=== PATIENT | male | born 1960 | race Caucasian/White ===

== ENCOUNTER → 2017-07-22 | Outpatient (CLI) | payer OTHER | END | disposition home or self-care (01) | LOC: PMGWOUND 08:32 | DX: L98.493 Non-pressure chronic ulcer of skin of other sites with necrosis of muscle (principal); J44.9 Chronic obstructive pulmonary disease, unspecified; F20.9 Schizophrenia, unspecified; F17.210 Nicotine dependence, cigarettes, uncomplicated; Z85.828 Personal history of other malignant neoplasm of skin | CPT/HCPCS: 97597; 97598 ==

== ENCOUNTER → 2017-07-29 | Outpatient (CLI) | payer OTHER | END | disposition home or self-care (01) | LOC: PMGWOUND 08:12 | DX: L98.494 Non-pressure chronic ulcer of skin of other sites with necrosis of bone (principal); J44.9 Chronic obstructive pulmonary disease, unspecified; F20.9 Schizophrenia, unspecified; F17.210 Nicotine dependence, cigarettes, uncomplicated; Z85.828 Personal history of other malignant neoplasm of skin | CPT/HCPCS: 97597 ==

== ENCOUNTER → 2017-08-05 | Outpatient (CLI) | payer OTHER | END | disposition home or self-care (01) | LOC: PMGWOUND 07:45 | DX: L98.493 Non-pressure chronic ulcer of skin of other sites with necrosis of muscle (principal); J44.9 Chronic obstructive pulmonary disease, unspecified; F17.210 Nicotine dependence, cigarettes, uncomplicated; Z85.828 Personal history of other malignant neoplasm of skin | CPT/HCPCS: 97597 ==

== ENCOUNTER → 2017-08-12 | Outpatient (CLI) | payer OTHER | END | disposition home or self-care (01) | LOC: PMGWOUND 08:39 | DX: L98.493 Non-pressure chronic ulcer of skin of other sites with necrosis of muscle (principal); J44.9 Chronic obstructive pulmonary disease, unspecified; F17.210 Nicotine dependence, cigarettes, uncomplicated; F20.9 Schizophrenia, unspecified; Z85.828 Personal history of other malignant neoplasm of skin | CPT/HCPCS: 97597 ==

== ENCOUNTER → 2017-08-19 | Outpatient (CLI) | payer OTHER | END | disposition home or self-care (01) | LOC: PMGWOUND 07:43 | DX: L98.494 Non-pressure chronic ulcer of skin of other sites with necrosis of bone (principal); J44.9 Chronic obstructive pulmonary disease, unspecified; F17.210 Nicotine dependence, cigarettes, uncomplicated; F20.9 Schizophrenia, unspecified; Z85.828 Personal history of other malignant neoplasm of skin | CPT/HCPCS: 97597; 97598 ==

== ENCOUNTER → 2017-08-26 | Outpatient (CLI) | payer OTHER | END | disposition home or self-care (01) | LOC: PMGWOUND 07:50 | DX: L98.494 Non-pressure chronic ulcer of skin of other sites with necrosis of bone (principal); J44.9 Chronic obstructive pulmonary disease, unspecified; F17.210 Nicotine dependence, cigarettes, uncomplicated; F20.9 Schizophrenia, unspecified; Z85.828 Personal history of other malignant neoplasm of skin | CPT/HCPCS: 97597; 97598 ==

== ENCOUNTER → 2017-09-02 | Outpatient (CLI) | payer OTHER | END | disposition home or self-care (01) | LOC: PMGWOUND 07:41 | DX: L98.494 Non-pressure chronic ulcer of skin of other sites with necrosis of bone (principal); J44.9 Chronic obstructive pulmonary disease, unspecified; F17.210 Nicotine dependence, cigarettes, uncomplicated; F20.9 Schizophrenia, unspecified; Z85.828 Personal history of other malignant neoplasm of skin | CPT/HCPCS: 97597 ==

== ENCOUNTER → 2017-09-09 | Outpatient (CLI) | payer OTHER | END | disposition home or self-care (01) | LOC: PMGWOUND 07:49 | DX: L98.493 Non-pressure chronic ulcer of skin of other sites with necrosis of muscle (principal); J44.9 Chronic obstructive pulmonary disease, unspecified; F17.210 Nicotine dependence, cigarettes, uncomplicated; F20.9 Schizophrenia, unspecified; Z85.828 Personal history of other malignant neoplasm of skin | CPT/HCPCS: 97597 ==

== ENCOUNTER → 2017-09-16 | Outpatient (CLI) | payer OTHER | END | disposition home or self-care (01) | LOC: PMGWOUND 07:41 | DX: L98.493 Non-pressure chronic ulcer of skin of other sites with necrosis of muscle (principal); J44.9 Chronic obstructive pulmonary disease, unspecified; F20.9 Schizophrenia, unspecified; F17.210 Nicotine dependence, cigarettes, uncomplicated; Z85.828 Personal history of other malignant neoplasm of skin | CPT/HCPCS: 99214 ==

== ENCOUNTER → 2017-09-30 | Outpatient (CLI) | payer OTHER | END | disposition home or self-care (01) | LOC: PMGWOUND 07:41 | DX: L98.493 Non-pressure chronic ulcer of skin of other sites with necrosis of muscle (principal); J44.9 Chronic obstructive pulmonary disease, unspecified; F20.9 Schizophrenia, unspecified; F17.210 Nicotine dependence, cigarettes, uncomplicated; Z85.828 Personal history of other malignant neoplasm of skin | CPT/HCPCS: 99213 ==

== ENCOUNTER → 2019-01-26 | Outpatient (CLI) | payer OTHER ==
[~2019-01-26] MED LIST: ASPI-612 PO; ATEN50TA PO; BREX2TAB PO; CHOL10003 PO; CLONAZEPAM1 MG PO; DIVA500T2 PO; DOCU-109 PO; HYDR-3164 PO; OMEG1CAP38 PO; TAMS0.4C97 PO; ZIPR60CA2 PO
[2019-01-26 12:44] LABS: BASO # 0.1 x10^3/uL (0.0-0.2); BASO % 1 % (0-3); EOS # 0.2 x10^3/uL (0.0-0.7); EOS % 3 % (0-3); HEMATOCRIT 44.3 % (39.0-53.0); HEMOGLOBIN 15.3 g/dL (13.0-17.5); LYMPH # 1.4 x10^3/uL (1.0-4.8); LYMPH % 18 % (24-48); MEAN CORPUSCULAR HEMOGLOBIN 30 pg (25-35); MEAN CORPUSCULAR HGB CONC 35 g/dL (31-37); MEAN CORPUSCULAR VOLUME 86 fL (79-100); MONO # 0.6 x10^3/uL (0.0-1.1); MONO % 8 % (0-9); NEUT # 5.3 x10^3/uL (1.8-7.7); NEUT % 69 % (31-73); PLATELET COUNT 614 x10^3/uL (140-400); RED BLOOD COUNT 5.13 x10^6/uL (4.30-5.70); RED CELL DISTRIBUTION WIDTH 14.6 % (11.5-14.5); WHITE BLOOD COUNT 7.6 x10^3/uL (4.0-11.0)
[2019-01-26 12:55] LABS: ALBUMIN 3.8 g/dL (3.4-5.0); CALCIUM 8.9 mg/dL (8.5-10.1); GFR 76.2; POTASSIUM 4.7 mmol/L (3.5-5.1)
--- NOTE | 2019-01-27 09:26 | NUR ---
Lab results faxed to Dr. Clemens's office
== END | disposition home or self-care (01) ==
LOC: SURGPAT 12:07
PROVIDERS: ATTEND Surgery
DX: Z01.818 Encounter for other preprocedural examination (principal); K40.90 Unilateral inguinal hernia, without obstruction or gangrene, not specified as recurrent; Z88.8 Allergy status to other drugs, medicaments and biological substances
CPT/HCPCS: 36415; 80048; 82040; 85025

== ENCOUNTER 2019-01-31 08:51 | Day surgery (SDC) | payer OTHER ==
[~2019-01-31] VITALS: Ht 172.7 cm; Wt 61.5 kg
[~2019-01-31 08:51] MED LIST changes: +BUPIVACAINE-EPI 0.5%-1:200000 MPF 30 ML VIAL. INJ ONE; +DEXAMETHASONE SOD PHOS 4 MG/ML VIAL ONE; -DOCU-109 PO; -HYDR-3164 PO; +HYDROmorphone 2 MG/ML VIAL IV PRN; +IV RINGERS,LACTATED 1000ML 1,000 ML IV SCH; +LIDOCAINE 2% PF 5 ML VIAL. ONE; +MORPHINE SULFATE 2 MG/ML VIAL. IV PRN; +ONDANSETRON PF 4 MG/2 ML VIAL. ONE; +PROCHLORPERAZINE 10 MG/2 ML VIAL. IV PRN; +PROPOFOL 20 ML IV ONE; +fentaNYL PF VIAL 100 MCG/2 ML VIAL IV PRN; +fentaNYL PF VIAL 100 MCG/2 ML VIAL ONE
[2019-01-31] MEDS ORDERED: SEVOFLURANE 61 TO 120 MINUTES. IH ONE (10:30)
[2019-01-31] MEDS ORDERED: GLYCOPYRROLATE 1 MG/5 ML VIAL. ONE (10:33)
[2019-01-31] MEDS ORDERED: PHENYLEPHRINE in 0.9% NACL PF 1 MG/10 ML SYRINGE. IV ONE (10:41)
--- NOTE | 2019-01-31 11:12 | DISCH ---
DISCHARGE INSTRUCTIONS Condition on Discharge Condition on Discharge: Stable Activity After Discharge Activity Instructions for Disc: Resume previous activity, Activity as tolerated Lifting Instructions after Dis: No heavy lifting Driving Instructions after Dis: Do not drive Diet after Discharge Diet after Discharge: Regular Wound Incision Care Wound/Incision Care: Ice to area for comfort Other wound/incision instructi: september shower Thursday Follow-Up Follow up with: Sarath in [place] office 02/10 CADENCE SUÁREZ MD Jan 31, 2019 11:12
[2019-01-31] MEDS ORDERED: HYDR-3164 PO (11:20)
[2019-01-31] MEDS ORDERED: DOCU-109 PO (11:22)
--- NOTE | 2019-01-31 11:22 | PDOC ---
BRIEF OPERATIVE NOTE Date: Jan 31, 2019 Pre-Op Diagnosis right inguinal hernia Post-Op Diagnosis same, direct Procedure Performed repair with mesh Surgeon Sarath Veterinary Inspector Leatha SEXTON Anesthesia Type: General Blood Loss 10cc IV Fluid 400cc Specimens Obtained none Findings direct hernia, no indirect sack Complications none Operative Note # [id number] CADENCE SUÁREZ MD Jan 31, 2019 11:22
--- NOTE | 2019-01-31 11:35 | OP ---
DATE OF SURGERY: 01/31/2019 PREOPERATIVE DIAGNOSIS: Right inguinal hernia. POSTOPERATIVE DIAGNOSIS: Right inguinal hernia, direct. PROCEDURE: Repair with mesh. SURGEON: Cadence Suárez MD ANESTHESIA: General LMA. BLOOD LOSS: 10. INTRAVENOUS: 400. DESCRIPTION OF PROCEDURE: The patient brought to the operating suite, given a general LMA and the right groin prepped and draped in usual sterile fashion. A 0.5% Marcaine with epinephrine was used to infiltrate the skin and subcutaneous tissue along the incision line. Incision made and dissection carried down to the external oblique fascia. Bleeders were cauterized as identified. Fascia opened in the direction of its fibers, extended through the external ring. Cord swept off the pubis. [place] drain placed around it and dissection carried back to the internal ring where no evidence of an indirect hernia sac was found. A large direct hernia comprised the majority of the inguinal floor. This was mobilized circumferentially, the neck was scored with cautery and it was then reduced and held in reduction with a plug of Phasix mesh. The plug was tacked peripherally with 2-0 PDS, taking care to avoid injury to adjacent vessels. A keyhole patch was then fashioned and placed over the repair, the slit closed with a single 2-0 PDS stitch. Area checked for hemostasis and when present and a correct sponge count was obtained, the cord was returned to its normal anatomical position. External oblique fascia closed over a running fashion with 3-0 Vicryl. Subcutaneous approximated with 3-0 Vicryl, skin closed with a subcuticular 4-0 Monocryl. Steri-Strips and sterile dressing applied. The patient was awakened from his anesthetic and taken to the recovery room in satisfactory condition. CADENCE SUÁREZ MD DR: ANANT/rita JOB#: [id number] / [id number]
[2019-01-31] MEDS ORDERED: HYDROcodone/APAP 5/325MG 1 TAB TABLET PO ONE (12:15)
[2019-01-31 12:17] VITALS: BP 131/80
== END 2019-01-31 12:42 | disposition home or self-care (01) ==
LOC: SURG 08:51
PROVIDERS: ATTEND Surgery
DX: K40.90 Unilateral inguinal hernia, without obstruction or gangrene, not specified as recurrent (principal); I10 Essential (primary) hypertension; F41.9 Anxiety disorder, unspecified; F17.210 Nicotine dependence, cigarettes, uncomplicated; Z98.890 Other specified postprocedural states; Z89.429 Acquired absence of other toe(s), unspecified side; Z88.8 Allergy status to other drugs, medicaments and biological substances
CPT/HCPCS: 49505; A7015; C1781; J0690; J1100; J2001; J2370; J2405; J2704; J3010; J3490

== ENCOUNTER → 2021-08-27 | Outpatient (CLI) | payer OTHER ==
[2020-05-10 08:44] VITALS: BP 101/71
[~2021-08-27] MED LIST changes: +ALBU2.5V8 IH; -ASPI-612 PO; +ASPI-886 PO; +ASPI325T8 PO; +ATOR40TA59 PO; -BUPIVACAINE-EPI 0.5%-1:200000 MPF 30 ML VIAL. INJ ONE; +CARV6.2511 PO; +CLOP75TA PO; -DEXAMETHASONE SOD PHOS 4 MG/ML VIAL ONE; +DOCU-109 PO; +FURO40TA4 PO; +HYDR-3164 PO; -HYDROmorphone 2 MG/ML VIAL IV PRN; -IV RINGERS,LACTATED 1000ML 1,000 ML IV SCH; -LIDOCAINE 2% PF 5 ML VIAL. ONE; +LISI5TAB15 PO; -MORPHINE SULFATE 2 MG/ML VIAL. IV PRN; -ONDANSETRON PF 4 MG/2 ML VIAL. ONE; -PROCHLORPERAZINE 10 MG/2 ML VIAL. IV PRN; -PROPOFOL 20 ML IV ONE; -fentaNYL PF VIAL 100 MCG/2 ML VIAL IV PRN; -fentaNYL PF VIAL 100 MCG/2 ML VIAL ONE
[2021-08-27 11:00] LABS: BASO # 0.1 x10^3/uL (0.0-0.2); BASO % 1 % (0-3); EOS # 0.2 x10^3/uL (0.0-0.7); EOS % 2 % (0-3); HEMATOCRIT 44.4 % (39.0-53.0); HEMOGLOBIN 14.7 g/dL (13.0-17.5); LYMPH # 1.7 x10^3/uL (1.0-4.8); LYMPH % 16 % (24-48); MEAN CORPUSCULAR HEMOGLOBIN 29 pg (25-35); MEAN CORPUSCULAR HGB CONC 33 g/dL (31-37); MEAN CORPUSCULAR VOLUME 86 fL (79-100); MONO # 0.9 x10^3/uL (0.0-1.1); MONO % 8 % (0-9); NEUT % 73 % (31-73); RED BLOOD COUNT 5.16 x10^6/uL (4.30-5.70); RED CELL DISTRIBUTION WIDTH 15.3 % (11.5-14.5)
[2021-08-27 11:06] LABS: PLATELET COUNT 1077 x10^3/uL (140-400)
== END ==
LOC: ONCLAB 09:02
PROVIDERS: ATTEND Internal Medicine Hematology & Oncology
DX: D75.839 Thrombocytosis, unspecified (principal)
CPT/HCPCS: 36415; 82728; 83540; 83550; 85025

== ENCOUNTER → 2021-09-25 | Outpatient (CLI) | payer OTHER ==
[2020-05-10 08:44] VITALS: BP 101/71
[2021-09-25 09:00] LABS: BASO # 0.1 x10^3/uL (0.0-0.2); BASO % 1 % (0-3); EOS # 0.2 x10^3/uL (0.0-0.7); EOS % 2 % (0-3); HEMOGLOBIN 13.9 g/dL (13.0-17.5); LYMPH # 1.6 x10^3/uL (1.0-4.8); LYMPH % 17 % (24-48); MEAN CORPUSCULAR HEMOGLOBIN 29 pg (25-35); MEAN CORPUSCULAR HGB CONC 34 g/dL (31-37); MEAN CORPUSCULAR VOLUME 87 fL (79-100); MONO # 0.7 x10^3/uL (0.0-1.1); MONO % 7 % (0-9); NEUT # 7.2 x10^3/uL (1.8-7.7); NEUT % 73 % (31-73); PLATELET COUNT 765 x10^3/uL (140-400); RED BLOOD COUNT 4.74 x10^6/uL (4.30-5.70); RED CELL DISTRIBUTION WIDTH 15.6 % (11.5-14.5); WHITE BLOOD COUNT 9.9 x10^3/uL (4.0-11.0)
[2021-09-25 09:21] LABS: ANION GAP 8 (6-14); BLOOD UREA NITROGEN 19 mg/dL (8-26); BUN/CREATININE RATIO 16 (6-20); CALCIUM 8.6 mg/dL (8.5-10.1); CARBON DIOXIDE 30 mmol/L (21-32); CHLORIDE 99 mmol/L (98-107); CREATININE 1.2 mg/dL (0.7-1.3); GFR 61.3; GLUCOSE 85 mg/dL (70-99); POTASSIUM 4.7 mmol/L (3.5-5.1); SODIUM 137 mmol/L (136-145)
[2021-09-25 09:23] LABS: ALBUMIN 3.5 g/dL (3.4-5.0); ALK PHOS 81 U/L (46-116); ALT (SGPT) 25 U/L (16-63); AST (SGOT) 18 U/L (15-37); CHOLESTEROL 113 mg/dL (0-200); HDLC 46 mg/dL (40-60); LACTATE DEHYDROGENASE 273 U/L (85-227); LDLC 46 mg/dL (0-100); TOTAL BILIRUBIN 0.4 mg/dL (0.2-1.0); TRIGLYCERIDES 105 mg/dL (0-150); VLDLC 21 mg/dL (0-40)
[2021-09-25 10:53] LABS: PLT ESTIMATE INCREASED (ADEQUATE)
[2021-09-25 10:54] LABS: ANISOCYTOSIS PRESENT
== END ==
LOC: ONCLAB 08:16
PROVIDERS: ATTEND Internal Medicine Hematology & Oncology
DX: D75.839 Thrombocytosis, unspecified (principal); D47.3 Essential (hemorrhagic) thrombocythemia; I25.89 Other forms of chronic ischemic heart disease; F20.89 Other schizophrenia; F17.218 Nicotine dependence, cigarettes, with other nicotine-induced disorders
CPT/HCPCS: 36415; 80053; 80061; 80164; 83615; 84146; 85025